=== PATIENT | female | born 1975 | race Caucasian/White ===

== ENCOUNTER 2024-07-09 12:32 | Emergency (ER) | payer BC ==
[~2024-07-09] VITALS: Ht 165.1 cm; Wt 59.0 kg
[2024-07-09 12:41] VITALS: BP 147/94; TEMP 98.6; O2SAT 98
[2024-07-09 15:54] LABS: APPEARANCE,URINE Clear (CLEAR); BILIRUBIN,URINE Negative (NEGATIVE); BLOOD, URINE Negative Ery/uL (NEGATIVE); COLOR,URINE YELLOW (YELLOW); KETONES,URINE Negative (NEGATIVE); LEUKOCYTE ESTERASE ,URINE Negative (NEGATIVE); NITRITE, URINE Negative (NEGATIVE); PROTEIN,URINE Negative (NEGATIVE); UGLUCOSE Negative (NEGATIVE); UROBILINOGEN,URINE 0.2 EU/dL (0.2)
[2024-07-09] MEDS ORDERED: METR-147 PO (16:13)
== END 2024-07-09 16:19 | disposition home or self-care (01) ==
LOC: ER 12:38
DX: N89.8 Other specified noninflammatory disorders of vagina (principal)
CPT/HCPCS: 87210-TC